=== PATIENT | male | born 1950 | race Caucasian/White ===

== ENCOUNTER 2016-11-15 08:07 | Day surgery (SDC) | payer MEDICARE, OTHER ==
--- NOTE | 2016-11-12 14:02 | HP ---
ADMITTING HISTORY AND PHYSICAL: DATE OF ADMISSION: 11/15/16 AGE: 66 years, male. ADMITTING DIAGNOSES: 1. Hematuria. 2. Bladder lesion. 3. History of superficial bladder cancer. PROCEDURE: Transurethral resection of bladder region, right stent insertion. SURGEON: Johnny Leonard MD ADMITTING HISTORY AND PHYSICAL: Hugo Song is a 66-year-old former smoker with a history of a small focus of carcinoma in situ of the urinary bladder detected in April 2015. He had a recent cystoscopy which revealed a lesion suspicious for superficial transitional cell carcinoma adjacent to the right orifice. He was kindly evaluated by Dr. Doran preoperatively and is now being brought in for transurethral resection of the bladder lesion and temporary right stent insertion. PAST MEDICAL HISTORY: Significant for: 1. Coronary artery disease and myocardial infarction. 2. Renal artery stenosis. 3. Peripheral vascular disease. MEDICATIONS ON ADMISSION: 1. Rosuvastatin 20 mg daily. 2. Aspirin 81 mg daily. 3. Nitrostat p.r.n. 4. Ramipril 5 mg daily. 5. Spironolactone 25 mg daily. 6. Carvedilol 3.125 mg daily. ALLERGIES: No known drug allergies. PHYSICAL EXAMINATION GENERAL: Reveals a pleasant, middle-aged gentleman. VITAL SIGNS: Blood pressure is 152/90, pulse 73 per minute, oxygen saturation 98%. CARDIOVASCULAR EXAM: S1, S2. Lungs are clear bilaterally. ABDOMEN: Soft without masses. Also of note is the fact that he has an AICD in place that was placed in September 2014 and is followed by [facility]. PLAN: Transurethral resection of bladder lesion and right stent insertion. CC: Dr. Doran * [id number]/[facility] #: [id number] [facility]
[~2016-11-15 08:07] MED LIST: Buffered Lidocaine 1% SYR 3ML* 3 ML/SYR SYRINGE INTRADERM ONE; Famotidine IV* 10 MG/ML 2 ML (20 mg) IV ONE; Iohexol 180 (CONTRAST) 10 ML SDV IV ONE; Morphine INJ* 2 MG/ML 1 ML SYRINGE IV PRN; PROCHLORPERAZINE INJ 5 MG/ML 2 ML VIAL IV PRN; Scopolamine 1.5 mg* PATCH TRANSDERM PRN; fentaNYL* 50 MCG/ML 2 ML VIAL (100 MCG VIAL) IV PRN; oxyCODONE/Acetamin 5/325 MG* TAB PO PRN
[2016-11-15] MEDS ORDERED: Famotidine IV* 10 MG/ML 2 ML (20 mg) ONE (08:12)
[2016-11-15] MEDS ORDERED: cefTRIAXone(*) 2 GM ADDV.VIAL IVPB ONE (08:12)
[2016-11-15] MEDS ORDERED: Midazolam* 1 MG/ML 5 ML VIAL (5 MG) ONE (08:29)
[2016-11-15] MEDS ORDERED: KETAMINE HCL* 50 MG/ML 10 ML VIAL ONE (08:29)
[2016-11-15] MEDS ORDERED: fentaNYL* 50 MCG/ML 2 ML VIAL (100 MCG VIAL) ONE (08:29)
[2016-11-15] MEDS ORDERED: Metoprolol Tartrate IV* 1 MG/ML 5 ML VIAL ONE (11:55)
[2016-11-15] MEDS ORDERED: Chloroprocaine 2%* 20 ML VIAL ONE (11:55)
[2016-11-15 13:41] VITALS: BP 164/99
--- NOTE | 2016-11-15 14:51 | RAD ---
CPT II Codes: 6045F INDICATION: Right stent insertion. Fluoroscopic services provided for referring physician. 9 spot images are reviewed. Initial pyelogram demonstrates right hydronephrosis of the the upper pole is incompletely visualized. There is placement of a right ureteral stent via wire. IMPRESSION: Fluoroscopic services provided for referring physician for right ureteral stent placement.
--- NOTE | 2016-11-16 07:49 | OP ---
DATE OF OPERATION: 11/15/16 - SDS DATE OF : [birth year] - AGE: 66 years, Male. SURGEON: Johnny Leonard MD ANESTHESIOLOGIST: Dr. Coy. ANESTHESIA: Spinal. PRE-OP DIAGNOSIS: Bladder lesion. POST-OP DIAGNOSIS: Bladder lesion. OPERATIVE PROCEDURE: 1. Transurethral resection of bladder lesion (2 to 3 cm). 2. Right retrograde pyelogram and right stent insertion. COMPLICATIONS: None. POSTOPERATIVE CONDITION: Stable. STENT USED: 6-Danish stent, right ureter. OPERATIVE FINDINGS: 1. Mildly enlarged prostate. 2. Area of raised irregular mucosa adjacent to right orifice. Appearance suspicious for low-grade superficial neoplasm. INDICATIONS: Hugo Song is a 66-year-old gentleman who was evaluated in the office and noted to have the above-mentioned findings on office cystoscopy. DESCRIPTION OF PROCEDURE: After induction of spinal anesthesia, the patient was placed in dorsal lithotomy position. Sequential compression devices were in place and functioning. Initial cystoscopy revealed a normal-appearing urethra and enlarged prostate and the above-mentioned finding on cystoscopy noted. The right retrograde pyelogram revealed no evidence of any persistent filling defects or obstruction. A 6-Danish stent was introduced and positioned under fluoroscopy with good proximal and distal positioning obtained. Next, attention was directed to the bladder lesion, which was located adjacent to the right orifice. Special Education Curriculum Specialist biopsies were obtained and sent for histopathology. Next, using the resectoscope, all of the visible lesion was resected and the base was fulgurated with a coagulating current. Hemostasis appeared satisfactory at the end of the procedure and there was no evidence of bladder perforation. A 20-Danish Peña catheter was introduced without difficulty and connected to a drainage bag. The patient tolerated the procedure satisfactorily and was transferred back to the recovery area in stable condition. CC: Dr. Doran* [id number]/[facility] #: [id number] [facility]ITAL[facility]
[2016-11-18] MEDS ORDERED: Scopolomine PATCH Remove* 1 NOTE MISC PATCH OFF ONE (06:10)
== END 2016-11-15 13:49 | disposition home or self-care (01) ==
LOC: OR 08:07
PROVIDERS: ATTEND Urology
DX: D09.0 Carcinoma in situ of bladder (principal); R31.9 Hematuria, unspecified; Z87.891 Personal history of nicotine dependence; I25.10 Atherosclerotic heart disease of native coronary artery without angina pectoris; I25.2 Old myocardial infarction; I73.9 Peripheral vascular disease, unspecified
CPT/HCPCS: 74420; 88305; A9270-GY; C1876; J0696; J2250; J2400; J3010

== ENCOUNTER 2018-02-14 13:44 | Day surgery (SDC) | payer MEDICARE, OTHER ==
[~2018-02-14 13:44] MED LIST changes: +Buffered Lidocaine 0.9% SYRIN* 5 ML/SYR SYRINGE INTRADERM ONE; -Buffered Lidocaine 1% SYR 3ML* 3 ML/SYR SYRINGE INTRADERM ONE; +Dexamethasone IV* 4 MG/ML 1 ML (4 MG) IV SLOW PU ONE; -Iohexol 180 (CONTRAST) 10 ML SDV IV ONE; -Morphine INJ* 2 MG/ML 1 ML SYRINGE IV PRN; -PROCHLORPERAZINE INJ 5 MG/ML 2 ML VIAL IV PRN; -Scopolamine 1.5 mg* PATCH TRANSDERM PRN; -fentaNYL* 50 MCG/ML 2 ML VIAL (100 MCG VIAL) IV PRN; -oxyCODONE/Acetamin 5/325 MG* TAB PO PRN
[2018-02-14] MEDS ORDERED: Famotidine IV* 10 MG/ML 2 ML (20 mg) ONE (13:57)
[2018-02-14] MEDS ORDERED: Dexamethasone IV* 4 MG/ML 1 ML (4 MG) ONE (13:57)
[2018-02-14] MEDS ORDERED: ceFAZolin 2 GM PREMIX (*) 2 GM/50 ML BAG IVPB ONE (13:57)
[2018-02-14] MEDS ORDERED: fentaNYL* 50 MCG/ML 2 ML VIAL (100 MCG VIAL) ONE (17:00)
[2018-02-14] MEDS ORDERED: Midazolam* 1 MG/ML 5 ML VIAL (5 MG) ONE (17:00)
[2018-02-14] MEDS ORDERED: HYDROcodone/ACETAMIN 5-325 MG* 1 TAB PO PRN (17:03)
[2018-02-14] MEDS ORDERED: Acetaminophen TAB* 325 MG PO PRN (17:03)
[2018-02-14] MEDS ORDERED: Ondansetron INJ* 2 MG/ML VIAL IV PRN (17:03)
[2018-02-14] MEDS ORDERED: fentaNYL* 50 MCG/ML 2 ML VIAL (100 MCG VIAL) IV PRN (17:03)
[2018-02-14] MEDS ORDERED: Naloxone* 0.4 MG/ML 1 ML VIAL IV PRN (17:03)
[2018-02-14] MEDS ORDERED: Bupivacaine 0.25% W/EPI* 10 ML SDV ONE (17:03)
[2018-02-14] MEDS ORDERED: Bupivacaine 0.25% SDV PF* 10 ML VIAL INJ ONE (17:05)
[2018-02-14] MEDS ORDERED: Lidocaine 1% MPF wEPI 200,000* 30 ML SDV ONE (17:12)
[2018-02-14] MEDS ORDERED: Lidocain 1% EPI 1:100,000 * 30 ML MDV ONE (17:12)
[2018-02-14] MEDS ORDERED: Lidocaine 2% PF * 5 ML VIAL ONE (17:25)
[2018-02-14] MEDS ORDERED: Propofol* 10 MG/ML 20 ML BTL IV PUSH ONE (17:25)
[2018-02-14 18:48] VITALS: BP 127/66
== END 2018-02-14 19:19 | disposition home or self-care (01) ==
LOC: OR 13:44
PROVIDERS: ATTEND Plastic Surgery
DX: C44.321 Squamous cell carcinoma of skin of nose (principal); I25.10 Atherosclerotic heart disease of native coronary artery without angina pectoris; I25.2 Old myocardial infarction; Z95.5 Presence of coronary angioplasty implant and graft; Z95.810 Presence of automatic (implantable) cardiac defibrillator; I12.9 Hypertensive chronic kidney disease with stage 1 through stage 4 chronic kidney disease, or unspecified chronic kidney disease; Z87.891 Personal history of nicotine dependence; E78.5 Hyperlipidemia, unspecified; N18.3 Chronic kidney disease, stage 3 (moderate)
CPT/HCPCS: J0690; J1100; J2001; J2250; J2704; J3010; J3490

== ENCOUNTER 2019-07-01 15:55 | Emergency (ER) | payer MEDICARE, OTHER ==
[2019-07-01 16:03] VITALS: BP 134/63
[2019-07-01 16:16] LABS: Influenza A Molecular POSITIVE (Negative)
--- NOTE | 2019-07-01 16:16 | UC ---
Respiratory Complaint HPI - HPI Summary HPI Summary: day 2 of body aches cough uri symptoms... was exposed to the flu 06/27/19 and when he came [place] yesterday after noon his symptoms began---he did not get a flu vaccine this yea (his has gotten a vaccine) - History of Current Complaint Chief Complaint: UCRespiratory Stated Complaint: cough, AND RUNNY NOSE Time Seen by Provider: 07/01/19 15:56 Hx Obtained From: Patient Onset/Duration: Sudden Onset, Lasting Days - 1 Timing: Constant Pain Intensity: 5 Pain Scale Used: 0-10 Numeric Character: Cough: Nonproductive Aggravating Factors: Nothing Alleviating Factors: Nothing Associated Signs And Symptoms: Positive: Fever, Chills, URI, Nasal Congestion - Allergies/Home Medications Allergies/Adverse Reactions: Allergies Allergy/AdvReac Type Severity Reaction Status Date / Time No Known Allergies Allergy Verified 07/01/19 16:03 PMH/Surg Hx/FS Hx/Imm Hx Previously Healthy: No Cardiovascular History: Hypertension GI/ History: Gastroesophageal Reflux - Surgical History Surgical History: Yes Surgery Procedure, Year, and Place: PROCEDURE FOR PROSTATE CANCER-[facility] [place] SAY2-PACEMAKER/[id number] battery replaced 2-3 years ago. CARDIAC STENTS, 2005, 2006, 2008, [facility] MONIQUE hernia repair - Family History Known Family History: Positive: None - Social History Occupation: Retired Lives: With Family Alcohol Use: None Substance Use Type: None Smoking Status (MU): Former Smoker Amount Used/How Often: 1- 1 1/2 PPD X 30 YEARS Have You Smoked in the Last Year: No When Did the Patient Quit Smoking/Using Tobacco: 2007 Review of Systems All Other Systems Reviewed And Are Negative: Yes Constitutional: Positive: Fever, Chills, Fatigue Skin: Positive: Negative Eyes: Positive: Negative ENT: Positive: Nasal Discharge, Sinus Congestion Respiratory: Positive: Cough Cardiovascular: Positive: Negative Gastrointestinal: Positive: Negative Genitourinary: Positive: Negative Motor: Positive: Negative Neurovascular: Positive: Negative Musculoskeletal: Positive: Arthralgia, Myalgia Neurological: Positive: Negative Psychological: Positive: Negative Is Patient Immunocompromised?: No Physical Exam Triage Information Reviewed: Yes Appearance: No Pain Distress, Well-Nourished, Ill-Appearing - mild Vital Signs: Initial Vital Signs Temp 98.7 F 07/01/19 15:57 Pulse 83 07/01/19 15:57 Resp 16 07/01/19 15:57 BP 134/63 07/01/19 15:57 Pulse Ox 96 07/01/19 15:57 Vital Signs Reviewed: Yes Eye Exam: Normal Eyes: Positive: Conjunctiva Clear ENT Exam: Normal ENT: Positive: Normal ENT inspection, Hearing grossly normal, Pharynx normal, Nasal congestion, TMs normal, Uvula midline. Negative: Tonsillar swelling, Tonsillar exudate, Trismus, Muffled voice, Hoarse voice, Dental tenderness, Sinus tenderness Dental Exam: Normal Neck exam: Normal Neck: Positive: Supple, Nontender, No Lymphadenopathy Respiratory Exam: Normal Respiratory: Positive: Chest non-tender, Lungs clear, Normal breath sounds, No respiratory distress, No accessory muscle use, Other: - sat recheck 99% Cardiovascular Exam: Normal Cardiovascular: Positive: RRR, No Murmur, Pulses Normal, Brisk Capillary Refill Musculoskeletal Exam: Normal Musculoskeletal: Positive: Strength Intact, ROM Intact, No Edema Neurological Exam: Normal Neurological: Positive: Alert, Muscle Tone Normal Psychological Exam: Normal Skin Exam: Normal Diagnostics - Laboratory Lab Results: influenza A + Re-Evaluation - Re-Evaluation First Eval Comment: creatine clearnece calualated with height 70 inches and weight 200 lbs per patient is 48- Respiratory Course/Dx - Course Course Of Treatment: rest increase fluids---tamiflu 30 mg po bid for 5 days (dose adjusted per calculated creatinine clearance) follow with pcp to ED if symptoms worsen - Differential Dx/Diagnosis Provider Diagnosis: Influenza A Discharge ED - Sign-Out/Discharge Documenting (check all that apply): Patient Departure All imaging exams completed and their final reports reviewed: No Studies - Discharge Plan Condition: Stable Disposition: HOME Prescriptions: Oseltamivir CAP* [Tamiflu CAP*] 30 mg PO BID 5 Days #10 cap Patient Education Materials: Influenza (ED) Referrals: Pb Doran MD [Primary Care Provider] - 2 Days - Billing Disposition and Condition Condition: STABLE Disposition: Home - Attestation Statements Provider Attestation: Per institutional requirements, I have reviewed the chart, however, I was not consulted specifically or made aware of this patient by the midlevel provider. I did not personally evaluate, interact with , or disposition this patient.
== END 2019-07-01 16:53 | disposition home or self-care (01) ==
LOC: UCEAST 15:55
DX: J11.1 Influenza due to unidentified influenza virus with other respiratory manifestations (principal); J34.89 Other specified disorders of nose and nasal sinuses; I10 Essential (primary) hypertension; Z87.891 Personal history of nicotine dependence; Z85.46 Personal history of malignant neoplasm of prostate
CPT/HCPCS: 99212; G0463

== ENCOUNTER 2022-07-01 09:53 | Inpatient (IN) ==
[2022-07-01 10:16] LABS: ABS Basophils 0.1 10^3/ul (0-0.2); ABS Eosinophils 0.1 10^3/ul (0-0.6); ABS Lymphocytes 1.6 10^3/ul (1.0-4.8); ABS Monocytes 0.5 10^3/ul (0-0.8); ABS Neutrophils 4.7 10^3/ul (1.5-7.7); Hematocrit 44 % (42-52); Hemoglobin 14.1 g/dL (14.0-18.0); Lymphocyte % 22.5 %; Mean Corpuscular HGB Conc 33 g/dL (31-36); Mean Corpuscular Hemoglobin 31 pg (27-31); Mean Corpuscular Volume 95 fL (80-94); Mean Platelet Volume 8.7 fL (7.4-10.4); Platelet Count 180 10^3/uL (150-450); Red Blood Count 4.61 10^6 /uL (4.18-5.48); Red Cell Distribution Width 16 % (10-15); White Blood Count 6.9 10^3/uL (3.5-10.8)
[2022-07-01 10:22] LABS: INR 1.05 (0.88-1.18)
[2022-07-01] MEDS ORDERED: Amiodarone 150 mg IVPREMIX 150 MG/100 ML BAG IV ONE (10:30)
[2022-07-01] MEDS ORDERED: Metoprolol Tartrate 5 mg VIAL 5 ml VIAL (1 mg/ml) IV ONE ×4 (10:30→12:16)
[2022-07-01] MEDS ORDERED: Metoprolol Tartrate 5 mg VIAL 5 ml VIAL (1 mg/ml) ONE (10:31)
[2022-07-01] MEDS ORDERED: Magnesium Sulfate 2 gm BAG 2 GM/50 ML BAG IVPB ONE (10:32)
[2022-07-01] MEDS ORDERED: Lactated Ringers 1000 ml BAG 1,000 ML IV ONE (10:33)
[2022-07-01 10:50] LABS: Albumin 3.6 g/dL (3.2-5.2); Albumin/Globulin Ratio 1.1 (1-3); Calcium 9.1 mg/dL (8.6-10.3); Globulin 3.4 g/dL (2-4); Total Bilirubin 0.6 mg/dL (0.2-1.0); eGFR CKD-EPI 46.9 (>60)
[2022-07-01 10:51] LABS: Potassium 5.1 mmol/L (3.5-5.0)
[2022-07-01 11:05] LABS: Magnesium 1.8 mg/dL (1.9-2.7); Phosphorus 2.3 mg/dL (2.5-5.0)
[2022-07-01 11:44] LABS: High Sensitivity Troponin 1 Hr 98 pg/mL (<20)
[2022-07-01] MEDS ORDERED: Amiodarone 360 MG IVPREMIX 360 MG/200 ML BAG IV SCH ×3 (12:20→12:50)
[2022-07-01] MEDS ORDERED: Heparin DRIP 25,000 UNITS BAG 25,000 UNITS/500 ML BAG IV SCH (12:30)
[2022-07-01] MEDS: Aspirin EC 81 mg TAB.EC (enteric coated) PO SCH (14:13)
[2022-07-01] MEDS: Heparin 5000 UNITS/ML 1 mL VIAL IV SCH (14:25)
[2022-07-01] MEDS ORDERED: Sulfur Hexaflouride MICROSPHR 25 MG VIAL ONE (15:10)
[2022-07-01] MEDS: Amiodarone 360 MG IVPREMIX 360 MG/200 ML BAG IV SCH (19:18)
[2022-07-02 00:36] LABS: Urine Appearance Clear; Urine Bilirubin Negative (Negative); Urine Blood Negative (Negative); Urine Color Yellow; Urine Glucose Negative (Negative); Urine Ketones Negative (Negative); Urine Nitrite Negative (Negative); Urine Protein Negative (Negative); Urine Specific Gravity 1.014 (1.002-1.030); Urine Urobilinogen Negative (Negative)
[2022-07-02 04:23] LABS: ABS Basophils 0.1 10^3/ul (0-0.2); ABS Eosinophils 0.1 10^3/ul (0-0.6); ABS Lymphocytes 1.7 10^3/ul (1.0-4.8); ABS Monocytes 0.5 10^3/ul (0-0.8); ABS Neutrophils 3.6 10^3/ul (1.5-7.7); Eosinophil % 1.8 %; Hematocrit 37 % (42-52); Hemoglobin 12.3 g/dL (14.0-18.0); Lymphocyte % 28.4 %; Mean Corpuscular HGB Conc 33 g/dL (31-36); Mean Corpuscular Hemoglobin 31 pg (27-31); Mean Corpuscular Volume 94 fL (80-94); Mean Platelet Volume 8.9 fL (7.4-10.4); Platelet Count 139 10^3/uL (150-450); Red Blood Count 3.99 10^6 /uL (4.18-5.48); Red Cell Distribution Width 16 % (10-15); White Blood Count 5.9 10^3/uL (3.5-10.8)
[2022-07-02 05:33] LABS: Calcium 8.4 mg/dL (8.6-10.3); Magnesium 2.1 mg/dL (1.9-2.7); Potassium 4.5 mmol/L (3.5-5.0)
[2022-07-02 05:52] LABS: eGFR CKD-EPI 42.9 (>60)
[2022-07-02] MEDS: Amiodarone 360 MG IVPREMIX 360 MG/200 ML BAG IV SCH (07:48)
[2022-07-02] MEDS: Aspirin EC 81 mg TAB.EC (enteric coated) PO SCH (07:51)
[2022-07-02] MEDS: Heparin 5000 UNITS/ML 1 mL VIAL IV SCH (10:39)
[2022-07-02 17:15] VITALS: BP 135/94
== END 2022-07-02 17:15 | disposition home or self-care (01) | DRG 308 ==
LOC: ED 09:53 → EDHOLD 12:04 → ICU 12:46
PROVIDERS: ADMIT Internal Medicine Critical Care Medicine; ATTEND Internal Medicine Critical Care Medicine